=== PATIENT | male | born 1940 | race African-American/Black ===

== ENCOUNTER 2023-10-25 00:29 | Inpatient (IN) | payer MEDICARE, OTHER ==
[~2023-10-25] VITALS: Ht 182.9 cm; Wt 79.4 kg
[2023-10-25 01:01] LABS: BASOPHILS % (AUTO) 0.9 % (0.0-2.0); EOSINOPHILS # (AUTO) 0.1 K/uL (0.0-0.7); EOSINOPHILS % (AUTO) 2.3 % (0.0-6.0); HEMATOCRIT 39 % (39-51); HEMOGLOBIN 12.8 g/dL (13.5-17.5); LYMPHOCYTES # (AUTO) 1.9 K/uL (0.8-4.8); LYMPHOCYTES % (AUTO) 38.3 % (20.0-44.0); MEAN CORPUSCULAR HEMOGLOBIN 28 PG (26.0-33.0); MEAN CORPUSCULAR HGB CONC 33 g/dl (31.0-36.0); MEAN CORPUSCULAR VOLUME 83 fL (80-96); MONOCYTES # (AUTO) 0.5 K/uL (0.1-1.30); MONOCYTES % (AUTO) 9.8 % (2.0-12.0); NEUTROPHILS # (AUTO) 2.5 K/uL (1.8-8.9); NEUTROPHILS % (AUTO) 48.7 % (43.0-81.0); PLATELET COUNT (AUTO) 210 K/uL (150-450); RED BLOOD CELL COUNT(AUTO) 4.66 MIL/uL (4.5-6.0); RED CELL DISTRIBUTION WIDTH 16.4 % (11.5-15.0)
[2023-10-25 01:07] LABS: CALCIUM, SERUM 9.2 mg/dL (8.5-10.1); CARBON DIOXIDE 31 mmol/L (21-32); CHLORIDE 105 mmol/L (98-107); GLUCOSE 93 mg/dL (74-106); POTASSIUM 4.6 mmol/L (3.5-5.1); SODIUM SERUM 141 mmol/L (136-145); UREA NITROGEN, BLOOD 31 mg/dL (7-18)
[2023-10-25 01:13] LABS: ALANINE AMINOTRANSFERASE 9 U/L (12-78); ALBUMIN 3.3 g/dL (3.4-5.0); ALKALINE PHOSPHATASE 48 U/L (46-116); ASPARTATE AMINOTRANSFERASE 5 U/L (15-37); BILIRUBIN,DIRECT 0.1 mg/dL (0.0-0.2); BILIRUBIN,TOTAL 0.3 mg/dL (0.2-1.0); TOTAL PROTEIN, SERUM 7.6 g/dL (6.4-8.2)
[2023-10-25 01:18] LABS: ACETAMINOPHEN <10 ug/ml (10-30); ALCOHOL, BLOOD < 3 mg/dL (0-10); SALICYLATE 2.6 mg/dL (2.8-20.0)
[2023-10-25 03:00] VITALS: BP 107/66; TEMP 98.3; O2SAT 96
[2023-10-25] MEDS ORDERED: MAG HYDROX/AL HYDROX/SIMETH 30 ML UDC PO PRN (03:00)
[2023-10-25] MEDS ORDERED: MAGNESIUM HYDROXIDE 30 ML UDC PO PRN (03:00)
[2023-10-25] MEDS: BLOOD SUGAR DIAGNOSTIC 1 EACH STRIP IN ONE (03:28)
[2023-10-25] MEDS ORDERED: CHOL400T11 PO (05:09)
[2023-10-25] MEDS ORDERED: ALEN70TA80 PO (05:09)
[2023-10-25] MEDS ORDERED: DOCU100C36 PO (05:09)
[2023-10-25] MEDS ORDERED: VALP250C3 PO (05:09)
[2023-10-25] MEDS ORDERED: RISP2TAB85 PO (05:09)
[2023-10-25] MEDS ORDERED: METF-440 PO (05:09)
[2023-10-25] MEDS: DOCUSATE SODIUM 100 MG CAPSULE PO SCH (09:42)
[2023-10-25] MEDS: METFORMIN 500 MG TABLET PO SCH (09:42)
[2023-10-25] MEDS: CHOLECALCIFEROL 1,000 UNIT TABLET (VIT D3) PO SCH (09:42)
[2023-10-25] MEDS: VALPROIC ACID 250 MG/5 ML UDC PO SCH (13:25)
[2023-10-25] MEDS: risperiDONE 1 MG TABLET PO SCH (13:25)
[2023-10-25 16:00] VITALS: BP 119/73; TEMP 97.9; O2SAT 99
[2023-10-26 08:00] VITALS: BP 100/77; TEMP 97.9; O2SAT 98
[2023-10-26] MEDS: VITAMINS A AND D 56.7 GM TUBE TP SCH (09:05)
[2023-10-26] MEDS: LORAZEPAM 0.5 MG TABLET PO PRN (11:36)
[2023-10-26 16:00] VITALS: BP 111/68; TEMP 97.5; O2SAT 98
[2023-10-26 20:00] VITALS: BP 108/63; TEMP 97.8; O2SAT 97
[2023-10-27 08:00] VITALS: BP 111/73; TEMP 98.1; O2SAT 97
[2023-10-27] MEDS: risperiDONE 1 MG TABLET PO SCH (12:31)
[2023-10-27 16:00] VITALS: BP 131/69; TEMP 97.7; O2SAT 98
[2023-10-27 20:00] VITALS: BP 99/64; TEMP 97.8; O2SAT 98
[2023-10-28 08:00] VITALS: BP 119/63; TEMP 98; O2SAT 98
[2023-10-28 16:00] VITALS: BP 99/60; TEMP 97.6; O2SAT 98
[2023-10-29] MEDS: ALENDRONATE 70 MG TABLET PO SCH (06:04)
[2023-10-29 08:00] VITALS: BP 116/61; TEMP 97.7; O2SAT 93
[2023-10-29 16:00] VITALS: BP 113/67; TEMP 97.9; O2SAT 100
[2023-10-30 08:00] VITALS: BP 104/72; TEMP 98.6; O2SAT 97
[2023-10-30] MEDS: OXCARBAZEPINE 150 MG TABLET PO SCH (11:07)
[2023-10-30] MEDS: risperiDONE 1 MG TABLET PO SCH (13:16)
[2023-10-30 16:00] VITALS: BP 115/75; TEMP 97.9; O2SAT 96
[2023-10-30 20:25] VITALS: BP 123/80; TEMP 97.9; O2SAT 98
[2023-10-31 08:00] VITALS: BP 107/54; TEMP 97.8; O2SAT 98
[2023-10-31 16:00] VITALS: BP 116/70; TEMP 98.1; O2SAT 100
[2023-10-31] MEDS: OXCARBAZEPINE 150 MG TABLET PO SCH (17:30)
[2023-10-31 21:28] VITALS: BP 106/79; TEMP 97.8; O2SAT 98
[2023-11-01 08:00] VITALS: BP 94/65; TEMP 98.9; O2SAT 99
[2023-11-01 16:00] VITALS: BP 106/73; TEMP 97.9; O2SAT 99
[2023-11-01] MEDS: OXCARBAZEPINE 150 MG TABLET PO SCH (17:35)
[2023-11-01 20:38] VITALS: BP 120/60; TEMP 97.9; O2SAT 98
[2023-11-02] MEDS: ACETAMINOPHEN 325 MG TABLET PO PRN (02:40)
[2023-11-02 08:00] VITALS: BP 128/90; TEMP 97.7; O2SAT 98
[2023-11-02 15:45] LABS: BASOPHILS % (AUTO) 0.8 % (0.0-2.0); EOSINOPHILS # (AUTO) 0.1 K/uL (0.0-0.7); EOSINOPHILS % (AUTO) 1.6 % (0.0-6.0); HEMATOCRIT 38 % (39-51); HEMOGLOBIN 12.2 g/dL (13.5-17.5); LYMPHOCYTES # (AUTO) 2.5 K/uL (0.8-4.8); LYMPHOCYTES % (AUTO) 47.8 % (20.0-44.0); MEAN CORPUSCULAR HEMOGLOBIN 27 PG (26.0-33.0); MEAN CORPUSCULAR HGB CONC 33 g/dl (31.0-36.0); MEAN CORPUSCULAR VOLUME 84 fL (80-96); MONOCYTES # (AUTO) 0.5 K/uL (0.1-1.30); MONOCYTES % (AUTO) 9.9 % (2.0-12.0); NEUTROPHILS % (AUTO) 39.9 % (43.0-81.0); PLATELET COUNT (AUTO) 167 K/uL (150-450); RED BLOOD CELL COUNT(AUTO) 4.49 MIL/uL (4.5-6.0); RED CELL DISTRIBUTION WIDTH 16.1 % (11.5-15.0); WHITE BLOOD COUNT (AUTO) 5.1 K/uL (4.3-11.0)
[2023-11-02 16:00] VITALS: BP 117/59; TEMP 97.9; O2SAT 98
[2023-11-02 20:00] VITALS: BP 109/80; TEMP 97.7; O2SAT 98
[2023-11-03 08:00] VITALS: BP 141/86; TEMP 98.6; O2SAT 95
[2023-11-03 16:00] VITALS: BP 91/67; TEMP 98; O2SAT 100
[2023-11-03] MEDS: OXCARBAZEPINE 150 MG TABLET PO SCH (16:39)
[2023-11-03 20:00] VITALS: BP 112/75; TEMP 98.3; O2SAT 100
[2023-11-03] MEDS: TEMAZEPAM 7.5 MG CAPSULE PO PRN (22:50)
[2023-11-04 08:00] VITALS: BP 99/65; TEMP 97.7; O2SAT 100
[2023-11-04 16:00] VITALS: BP 119/69; TEMP 98.6; O2SAT 98
[2023-11-04 20:00] VITALS: BP 100/51; TEMP 98.1; O2SAT 100
[2023-11-05 08:00] VITALS: BP 107/66; TEMP 97.9; O2SAT 98
[2023-11-05 16:00] VITALS: BP 107/62; TEMP 98; O2SAT 100
[2023-11-05 20:27] VITALS: BP 107/73; TEMP 98.3; O2SAT 98
[2023-11-06 08:00] VITALS: BP 85/61; TEMP 97.8; O2SAT 100
[2023-11-06 16:06] VITALS: BP 99/64; TEMP 97.6; O2SAT 98
[2023-11-06 20:57] VITALS: BP 96/56; TEMP 97.6; O2SAT 97
[2023-11-07 08:00] VITALS: BP 126/62; TEMP 97.7; O2SAT 93
[2023-11-07 16:00] VITALS: BP 91/62; TEMP 97.7; O2SAT 98
[2023-11-07 21:05] VITALS: BP 100/56; TEMP 98.2; O2SAT 97
[2023-11-08 08:00] VITALS: BP 133/74; TEMP 97.8; O2SAT 98
[2023-11-08 16:18] VITALS: BP 99/59; TEMP 98.2; O2SAT 97
[2023-11-08 20:19] VITALS: BP 106/63; TEMP 98; O2SAT 99
[2023-11-09 08:00] VITALS: BP 107/62; TEMP 97.9; O2SAT 97
== END 2023-11-09 14:41 | DRG 885 ==
LOC: ER 00:31 → GPS 01:28
PROVIDERS: ADMIT Nurse Practitioner Psychiatric/Mental Health; ATTEND Nurse Practitioner Acute Care
DX: F25.9 Schizoaffective disorder, unspecified (principal); I11.0 Hypertensive heart disease with heart failure; E44.1 Mild protein-calorie malnutrition; F29 Unspecified psychosis not due to a substance or known physiological condition; E11.9 Type 2 diabetes mellitus without complications; Z66 Do not resuscitate; R41.9 Unspecified symptoms and signs involving cognitive functions and awareness; Z20.822 Contact with and (suspected) exposure to COVID-19; I50.9 Heart failure, unspecified; Z88.0 Allergy status to penicillin; E78.5 Hyperlipidemia, unspecified; E88.09 Other disorders of plasma-protein metabolism, not elsewhere classified; R79.89 Other specified abnormal findings of blood chemistry; D64.9 Anemia, unspecified; F17.210 Nicotine dependence, cigarettes, uncomplicated; Z91.148 Patient's other noncompliance with medication regimen for other reason; Z91.199 Patient's noncompliance with other medical treatment and regimen due to unspecified reason
CPT/HCPCS: 36415; 80048-TC; 80076-TC; 80164-TC; 85025-TC; 87081-TC; 97112-TC; 97116-TC; 97530-TC; G0480

== ENCOUNTER 2023-12-30 22:59 | Inpatient (IN) | payer MEDICARE, OTHER ==
[~2023-12-30] VITALS: Ht 175.3 cm; Wt 77.1 kg
[~2023-12-30 22:59] MED LIST: ALEN70TA80 PO; CHOL400T11 PO; DOCU100C36 PO; METF-440 PO; RISP2TAB85 PO; VALP250C3 PO
[2023-12-30] MEDS ORDERED: OLANZAPINE 10 MG VIAL IM ONE (23:22)
[2023-12-30] MEDS: OLANZAPINE 10 MG VIAL IM ONE (23:33)
[2023-12-30 23:34] LABS: BASOPHILS # (AUTO) 0.1 K/uL (0.0-0.2); BASOPHILS % (AUTO) 0.9 % (0.0-2.0); EOSINOPHILS # (AUTO) 0.6 K/uL (0.0-0.7); EOSINOPHILS % (AUTO) 6.6 % (0.0-6.0); HEMATOCRIT 39 % (39-51); HEMOGLOBIN 13.1 g/dL (13.5-17.5); LYMPHOCYTES # (AUTO) 3.6 K/uL (0.8-4.8); LYMPHOCYTES % (AUTO) 39.8 % (20.0-44.0); MEAN CORPUSCULAR HEMOGLOBIN 28 PG (26.0-33.0); MEAN CORPUSCULAR HGB CONC 33 g/dl (31.0-36.0); MEAN CORPUSCULAR VOLUME 83 fL (80-96); MONOCYTES % (AUTO) 10.7 % (2.0-12.0); NEUTROPHILS # (AUTO) 3.8 K/uL (1.8-8.9); PLATELET COUNT (AUTO) 188 K/uL (150-450); RED BLOOD CELL COUNT(AUTO) 4.75 MIL/uL (4.5-6.0); RED CELL DISTRIBUTION WIDTH 15.5 % (11.5-15.0); WHITE BLOOD COUNT (AUTO) 8.9 K/uL (4.3-11.0)
[2023-12-30 23:48] LABS: APPEARANCE,URINE CLEAR (CLEAR); BILIRUBIN,URINE NEGATIVE (NEGATIVE); BLOOD, URINE NEGATIVE Ery/uL (NEGATIVE); COLOR,URINE YELLOW (YELLOW); KETONES,URINE NEGATIVE (NEGATIVE); LEUKOCYTE ESTERASE ,URINE NEGATIVE (NEGATIVE); NITRITE, URINE NEGATIVE (NEGATIVE); PROTEIN,URINE TRACE mg/dl (NEGATIVE); UGLUCOSE NEGATIVE (NEGATIVE)
[2023-12-30 23:48] LABS: ALANINE AMINOTRANSFERASE 19 U/L (12-78); ALBUMIN 3.4 g/dL (3.4-5.0); ALCOHOL, BLOOD < 3 mg/dL (0-10); ALKALINE PHOSPHATASE 46 U/L (46-116); ASPARTATE AMINOTRANSFERASE 12 U/L (15-37); BILIRUBIN,DIRECT 0.1 mg/dL (0.0-0.2); BILIRUBIN,TOTAL 0.2 mg/dL (0.2-1.0); CALCIUM, SERUM 9.4 mg/dL (8.5-10.1); CARBON DIOXIDE 33 mmol/L (21-32); CHLORIDE 108 mmol/L (98-107); CREATININE 1.3 mg/dL (0.6-1.3); GLUCOSE 86 mg/dL (74-106); SODIUM SERUM 146 mmol/L (136-145); TOTAL PROTEIN, SERUM 7.7 g/dL (6.4-8.2); UREA NITROGEN, BLOOD 29 mg/dL (7-18)
[2023-12-30 23:50] LABS: ACETAMINOPHEN 0 ug/ml (10-30); SALICYLATE 1.7 mg/dL (2.8-20.0)
[2023-12-30 23:59] LABS: ADD URINE CULTURE NO; BACTERIA,URINE None seen /HPF (None Seen); MUCUS,URINE Few /LPF (None Seen); RBC,URINE NONE SEEN /HPF (0-2); SQUAMOUS EPITHELIAL CELL,UR None Seen /HPF (None Seen); WBC,URINE NONE SEEN /HPF (0-3)
[2023-12-31] MEDS: IV NS 0.9% 1,000 ML BAG IV ONE (00:09)
[2023-12-31 00:13] LABS: AMPHETAMINE, URINE NEGATIVE (NEGATIVE); BARBITURATE, URINE NEGATIVE (NEGATIVE); BENZODIAZEPINE, URINE NEGATIVE (NEGATIVE); CANNABINOID, URINE NEGATIVE (NEGATIVE); COCCAINE, URINE NEGATIVE (NEGATIVE); OPIATE, URINE NEGATIVE (NEGATIVE); PHENCYCLIDINE SCREEN,URINE NEGATIVE (NEGATIVE)
[2023-12-31 01:05] LABS: CALCIUM, SERUM 8.3 mg/dL (8.5-10.1); CARBON DIOXIDE 27 mmol/L (21-32); CHLORIDE 106 mmol/L (98-107); GLUCOSE 86 mg/dL (74-106); POTASSIUM 3.7 mmol/L (3.5-5.1); SODIUM SERUM 141 mmol/L (136-145); UREA NITROGEN, BLOOD 27 mg/dL (7-18)
[2023-12-31] MEDS ORDERED: DIVA250T4 PO (01:33)
[2023-12-31] MEDS ORDERED: MAGN400O21 PO (01:33)
[2023-12-31] MEDS ORDERED: DIVA500T2 PO (01:33)
[2023-12-31] MEDS ORDERED: MULT-1275 PO (01:33)
[2023-12-31] MEDS ORDERED: OXCA300T4 PO (01:33)
[2023-12-31] MEDS ORDERED: MAG HYDROX/AL HYDROX/SIMETH 30 ML UDC PO PRN ×2 (02:30→08:30)
[2023-12-31] MEDS ORDERED: MAGNESIUM HYDROXIDE 30 ML UDC PO PRN ×2 (02:30→09:00)
[2023-12-31] MEDS ORDERED: LORAZEPAM 0.5 MG TABLET PO PRN ×2 (02:30)
[2023-12-31] MEDS ORDERED: ACETAMINOPHEN 325 MG TABLET PO PRN (02:30)
[2023-12-31] MEDS ORDERED: TEMAZEPAM 7.5 MG CAPSULE PO PRN (02:30)
[2023-12-31] MEDS: BLOOD SUGAR DIAGNOSTIC 1 EACH STRIP IN ONE (03:22)
[2023-12-31 03:54] VITALS: BP 116/79; TEMP 98.1; O2SAT 96
[2023-12-31] MEDS ORDERED: ALENDRONATE 70 MG TABLET PO SCH (07:30)
[2023-12-31] MEDS ORDERED: ACET-868 PO (07:34)
[2023-12-31] MEDS ORDERED: MAG30ORA PO (07:34)
[2023-12-31 08:00] VITALS: BP 105/74; TEMP 97.7; O2SAT 100
[2023-12-31] MEDS: NICOTINE PATCH (14MG) 14 MG PATCH.TD24 TD SCH (08:49)
[2023-12-31] MEDS: CHOLECALCIFEROL (VITAMIN D 3) 400 UNIT TABLET PO SCH (08:50)
[2023-12-31] MEDS: METFORMIN 500 MG TABLET PO SCH (08:50)
[2023-12-31] MEDS: MULTIVITAMINS,THERAGRAN 1 UDTAB TABLET PO SCH (08:50)
[2023-12-31] MEDS: DOCUSATE SODIUM 100 MG CAPSULE PO SCH (08:51)
[2023-12-31 16:00] VITALS: BP 95/61; TEMP 97.5; O2SAT 100
[2023-12-31] MEDS: risperiDONE 1 MG TABLET PO SCH (17:00)
[2023-12-31] MEDS: DIVALPROEX SODIUM 125 MG CAP.SPRINK PO SCH ×2 (17:00→21:08)
[2023-12-31 20:33] VITALS: BP 102/75; TEMP 97.9; O2SAT 98
[2024-01-01 08:00] VITALS: BP 101/66; TEMP 98.4; O2SAT 98
[2024-01-01 16:00] VITALS: BP 111/59; TEMP 98.5; O2SAT 98
[2024-01-02 08:00] VITALS: BP 102/60; TEMP 98.9; O2SAT 97
[2024-01-02 16:00] VITALS: BP 115/63; TEMP 98.6; O2SAT 97
[2024-01-03 08:00] VITALS: BP 120/66; TEMP 98.7; O2SAT 97
[2024-01-03] MEDS: risperiDONE 1 MG TABLET PO SCH (13:30)
[2024-01-03] MEDS: OLANZAPINE 10 MG VIAL IM PRN (14:24)
[2024-01-03 16:00] VITALS: BP 127/68; TEMP 98.7; O2SAT 98
[2024-01-03 20:00] VITALS: BP 106/62; TEMP 98.7; O2SAT 98
[2024-01-03] MEDS: DIVALPROEX SODIUM 500 MG TABLET.DR PO SCH (20:07)
[2024-01-04] MEDS: DIVALPROEX SODIUM 500 MG TABLET.DR PO SCH (13:00)
[2024-01-04] MEDS: risperiDONE 1 MG TABLET PO SCH (13:00)
[2024-01-04 16:08] VITALS: BP 102/53; TEMP 97.9; O2SAT 98
[2024-01-04 20:00] VITALS: BP 107/68; TEMP 98; O2SAT 95
[2024-01-04] MEDS: TEMAZEPAM 7.5 MG CAPSULE PO PRN (23:27)
[2024-01-05 16:00] VITALS: BP 100/60; TEMP 97.6; O2SAT 98
[2024-01-05 20:00] VITALS: BP 97/63; TEMP 97.9; O2SAT 97
[2024-01-06 08:00] VITALS: BP 104/70; TEMP 97.7; O2SAT 97
[2024-01-06 16:00] VITALS: BP 109/60; TEMP 97.6; O2SAT 96
[2024-01-06 20:00] VITALS: BP 99/86; TEMP 97.8; O2SAT 96
[2024-01-06 22:04] LABS: APPEARANCE,URINE SLIGHTLY CLOUDY (CLEAR); BILIRUBIN,URINE NEGATIVE (NEGATIVE); BLOOD, URINE 3+ Ery/uL (NEGATIVE); COLOR,URINE YELLOW (YELLOW); KETONES,URINE TRACE mg/dL (NEGATIVE); LEUKOCYTE ESTERASE ,URINE 1+ (NEGATIVE); NITRITE, URINE POSITIVE (NEGATIVE); PROTEIN,URINE 1+ mg/dl (NEGATIVE); UGLUCOSE NEGATIVE (NEGATIVE)
[2024-01-06 22:31] LABS: RBC,URINE 21-50 /HPF (0-2)
[2024-01-06 22:33] LABS: ADD URINE CULTURE YES; BACTERIA,URINE Moderate /HPF (None Seen)
[2024-01-07] MEDS: NITROFURANTOIN/MONOHYDRATE MACROCRYSTALS 100 MG CAPSULE PO SCH (09:00)
[2024-01-07 09:08] VITALS: BP 100/69; TEMP 98.5; O2SAT 97
[2024-01-07] MEDS: OLANZAPINE 10 MG VIAL IM PRN (09:40)
[2024-01-07 16:00] VITALS: BP 97/68; TEMP 97.3; O2SAT 98
[2024-01-08 08:00] VITALS: BP 101/71; TEMP 97.8; O2SAT 98
[2024-01-08 16:09] VITALS: BP 109/64; TEMP 98.2; O2SAT 100
[2024-01-08 20:00] VITALS: BP 103/72; TEMP 98.2; O2SAT 99
[2024-01-09 15:53] VITALS: BP 100/63; TEMP 98.6; O2SAT 99
[2024-01-10 08:00] VITALS: BP 119/66; TEMP 98.6; O2SAT 97
[2024-01-10 16:00] VITALS: BP 100/61; TEMP 98; O2SAT 96
[2024-01-10 21:59] VITALS: BP 102/61; TEMP 98; O2SAT 96
[2024-01-11 08:00] VITALS: BP 100/53; TEMP 98.6; O2SAT 100
[2024-01-11 16:00] VITALS: BP 100/57; TEMP 98.6; O2SAT 100
[2024-01-12 08:00] VITALS: BP 90/50; TEMP 98.9; O2SAT 100
[2024-01-12 16:00] VITALS: BP 101/65; TEMP 97.7; O2SAT 95
[2024-01-12 20:00] VITALS: BP 120/66; TEMP 98; O2SAT 99
[2024-01-13 08:00] VITALS: BP 91/50; TEMP 97.7; O2SAT 95
[2024-01-13 16:00] VITALS: BP 125/58; TEMP 98.6; O2SAT 94
[2024-01-13 20:00] VITALS: BP 106/63; TEMP 98.2; O2SAT 98
[2024-01-14 08:00] VITALS: BP 100/55; TEMP 97.9; O2SAT 100
[2024-01-14 16:00] VITALS: BP 100/53; TEMP 98.2; O2SAT 100
[2024-01-15 08:00] VITALS: BP 109/60; TEMP 97.8; O2SAT 100
[2024-01-15 16:00] VITALS: BP 100/61; TEMP 98.6; O2SAT 96
[2024-01-15 20:57] VITALS: BP 102/62; TEMP 98.6; O2SAT 97
[2024-01-16 07:41] LABS: BASOPHILS # (AUTO) 0.1 K/uL (0.0-0.2); BASOPHILS % (AUTO) 0.8 % (0.0-2.0); EOSINOPHILS # (AUTO) 0.2 K/uL (0.0-0.7); EOSINOPHILS % (AUTO) 2.6 % (0.0-6.0); HEMATOCRIT 37 % (39-51); HEMOGLOBIN 12.2 g/dL (13.5-17.5); LYMPHOCYTES # (AUTO) 1.7 K/uL (0.8-4.8); LYMPHOCYTES % (AUTO) 20.1 % (20.0-44.0); MEAN CORPUSCULAR HEMOGLOBIN 27 PG (26.0-33.0); MEAN CORPUSCULAR HGB CONC 33 g/dl (31.0-36.0); MEAN CORPUSCULAR VOLUME 83 fL (80-96); MONOCYTES % (AUTO) 11.7 % (2.0-12.0); NEUTROPHILS # (AUTO) 5.5 K/uL (1.8-8.9); NEUTROPHILS % (AUTO) 64.8 % (43.0-81.0); PLATELET COUNT (AUTO) 252 K/uL (150-450); RED BLOOD CELL COUNT(AUTO) 4.53 MIL/uL (4.5-6.0); WHITE BLOOD COUNT (AUTO) 8.5 K/uL (4.3-11.0)
[2024-01-16 07:53] LABS: CALCIUM, SERUM 9.2 mg/dL (8.5-10.1); CARBON DIOXIDE 31 mmol/L (21-32); CHLORIDE 102 mmol/L (98-107); GLUCOSE 89 mg/dL (74-106); POTASSIUM 4.4 mmol/L (3.5-5.1); SODIUM SERUM 138 mmol/L (136-145); UREA NITROGEN, BLOOD 21 mg/dL (7-18)
[2024-01-16 08:00] VITALS: BP 104/57; TEMP 97.9; O2SAT 96
[2024-01-16 08:00] LABS: ALANINE AMINOTRANSFERASE 9 U/L (12-78); ALBUMIN 2.8 g/dL (3.4-5.0); ALKALINE PHOSPHATASE 38 U/L (46-116); ASPARTATE AMINOTRANSFERASE 6 U/L (15-37); BILIRUBIN,TOTAL 0.3 mg/dL (0.2-1.0); MAGNESIUM 1.8 mg/dL (1.8-2.4); VALPROIC ACID 60 ug/mL (50-100)
[2024-01-16 16:00] VITALS: BP 135/86; TEMP 98; O2SAT 98
[2024-01-16] MEDS: ACETAMINOPHEN 325 MG TABLET PO PRN (19:48)
[2024-01-16 20:53] VITALS: BP 108/60; TEMP 99.7; O2SAT 96
[2024-01-17 08:00] VITALS: BP 96/59; TEMP 98.7; O2SAT 97
[2024-01-17 16:00] VITALS: BP 101/58; TEMP 98.7; O2SAT 98
[2024-01-17 20:00] VITALS: BP 100/47; TEMP 98.8; O2SAT 96
[2024-01-18 08:00] VITALS: BP 107/57; TEMP 98.7; O2SAT 97
[2024-01-18 16:00] VITALS: BP 107/54; TEMP 97.9; O2SAT 98
== END 2024-01-18 17:30 | DRG 885 ==
LOC: ER 23:14 → GPS 12-31 01:31
PROVIDERS: ADMIT Nurse Practitioner Psychiatric/Mental Health; ATTEND Internal Medicine
DX: F25.9 Schizoaffective disorder, unspecified (principal); N18.9 Chronic kidney disease, unspecified; I13.0 Hypertensive heart and chronic kidney disease with heart failure and stage 1 through stage 4 chronic kidney disease, or unspecified chronic kidney disease; G93.49 Other encephalopathy; I50.9 Heart failure, unspecified; F41.9 Anxiety disorder, unspecified; E11.22 Type 2 diabetes mellitus with diabetic chronic kidney disease; R41.9 Unspecified symptoms and signs involving cognitive functions and awareness; Z88.0 Allergy status to penicillin; Z79.83 Long term (current) use of bisphosphonates; Z79.899 Other long term (current) drug therapy; Z79.84 Long term (current) use of oral hypoglycemic drugs; Z73.6 Limitation of activities due to disability; R53.1 Weakness; R27.8 Other lack of coordination; Z91.81 History of falling; F32.A Depression, unspecified; E78.5 Hyperlipidemia, unspecified; Z91.199 Patient's noncompliance with other medical treatment and regimen due to unspecified reason
CPT/HCPCS: 36415; 80048-TC; 80053-TC; 80076-TC; 80164-TC; 81001; 82962-TC; 83735-TC; 85025-TC; 87081-TC; 87086-TC; 97110-TC; 97112-TC; 97116-TC; 97530-TC; G0480; J3490

== ENCOUNTER 2024-03-17 15:35 | Inpatient (IN) | payer MEDICARE, OTHER ==
[~2024-03-17] VITALS: Ht 170.2 cm; Wt 74.8 kg
[~2024-03-17 15:35] MED LIST changes: +ACET-868 PO; +MAG30ORA PO; +MAGN400O21 PO; +MULT-1275 PO; -RISP2TAB85 PO; -VALP250C3 PO
[2024-03-17 16:53] LABS: BASOPHILS % (AUTO) 0.8 % (0.0-2.0); EOSINOPHILS % (AUTO) 0.6 % (0.0-6.0); HEMATOCRIT 32 % (39-51); HEMOGLOBIN 10.6 g/dL (13.5-17.5); LYMPHOCYTES # (AUTO) 1.4 K/uL (0.8-4.8); LYMPHOCYTES % (AUTO) 28.2 % (20.0-44.0); MEAN CORPUSCULAR HEMOGLOBIN 27 PG (26.0-33.0); MEAN CORPUSCULAR HGB CONC 33 g/dl (31.0-36.0); MEAN CORPUSCULAR VOLUME 82 fL (80-96); MONOCYTES # (AUTO) 0.8 K/uL (0.1-1.30); MONOCYTES % (AUTO) 16.4 % (2.0-12.0); NEUTROPHILS # (AUTO) 2.7 K/uL (1.8-8.9); PLATELET COUNT (AUTO) 192 K/uL (150-450); RED BLOOD CELL COUNT(AUTO) 3.88 MIL/uL (4.5-6.0); RED CELL DISTRIBUTION WIDTH 17.7 % (11.5-15.0); WHITE BLOOD COUNT (AUTO) 5.1 K/uL (4.3-11.0)
[2024-03-17 17:14] LABS: ALANINE AMINOTRANSFERASE 14 U/L (12-78); ALBUMIN 3.1 g/dL (3.4-5.0); ALCOHOL, BLOOD < 3 mg/dL (0-10); ALKALINE PHOSPHATASE 40 U/L (46-116); ASPARTATE AMINOTRANSFERASE 12 U/L (15-37); BILIRUBIN,DIRECT 0.1 mg/dL (0.0-0.2); BILIRUBIN,TOTAL 0.3 mg/dL (0.2-1.0); CALCIUM, SERUM 8.9 mg/dL (8.5-10.1); CARBON DIOXIDE 30 mmol/L (21-32); CHLORIDE 105 mmol/L (98-107); CREATININE 1.1 mg/dL (0.6-1.3); GLUCOSE 104 mg/dL (74-106); POTASSIUM 4.2 mmol/L (3.5-5.1); SODIUM SERUM 141 mmol/L (136-145); TOTAL PROTEIN, SERUM 7.6 g/dL (6.4-8.2); UREA NITROGEN, BLOOD 27 mg/dL (7-18)
[2024-03-17 17:16] LABS: ACETAMINOPHEN <10 ug/ml (10-30)
[2024-03-17 17:56] LABS: APPEARANCE,URINE SLIGHTLY CLOUDY (CLEAR); BILIRUBIN,URINE NEGATIVE (NEGATIVE); BLOOD, URINE TRACE-INTA Ery/uL (NEGATIVE); COLOR,URINE YELLOW (YELLOW); KETONES,URINE TRACE mg/dL (NEGATIVE); LEUKOCYTE ESTERASE ,URINE 1+ (NEGATIVE); NITRITE, URINE POSITIVE (NEGATIVE); PROTEIN,URINE NEGATIVE (NEGATIVE); UGLUCOSE NEGATIVE (NEGATIVE); UROBILINOGEN,URINE 0.2 EU/dL (0.2)
[2024-03-17 18:09] LABS: AMPHETAMINE, URINE NEGATIVE (NEGATIVE); BARBITURATE, URINE NEGATIVE (NEGATIVE); BENZODIAZEPINE, URINE NEGATIVE (NEGATIVE); CANNABINOID, URINE NEGATIVE (NEGATIVE); COCCAINE, URINE NEGATIVE (NEGATIVE); OPIATE, URINE NEGATIVE (NEGATIVE); PHENCYCLIDINE SCREEN,URINE NEGATIVE (NEGATIVE)
[2024-03-17 18:23] LABS: ADD URINE CULTURE YES; BACTERIA,URINE 2+ /HPF (None Seen); RBC,URINE 0-2 /HPF (0-2); SQUAMOUS EPITHELIAL CELL,UR 0-2 /HPF (None Seen)
[2024-03-17] MEDS: SULFAMETH/TRIMETH 800/160 MG 1 UDTAB TABLET PO ONE (18:30)
[2024-03-17] MEDS ORDERED: RISP1TAB7 PO (18:40)
[2024-03-17] MEDS ORDERED: DIVA-78 PO (18:40)
[2024-03-17] MEDS ORDERED: SULFAMETH/TRIMETH 800/160 MG 1 UDTAB TABLET ONE (19:40)
[2024-03-17] MEDS ORDERED: MAGNESIUM HYDROXIDE 30 ML UDC PO PRN (22:30)
[2024-03-17] MEDS ORDERED: ALENDRONATE 70 MG TABLET PO SCH (22:30)
[2024-03-17] MEDS ORDERED: MAG HYDROX/AL HYDROX/SIMETH 30 ML UDC PO PRN (22:30)
[2024-03-17] MEDS ORDERED: ACETAMINOPHEN 325 MG TABLET PO PRN (22:30)
[2024-03-18] MEDS ORDERED: MAGNESIUM HYDROXIDE 30 ML UDC PO PRN (00:30)
[2024-03-18] MEDS ORDERED: TEMAZEPAM 7.5 MG CAPSULE PO PRN ×2 (00:30)
[2024-03-18] MEDS ORDERED: LORAZEPAM 0.5 MG TABLET PO PRN ×2 (00:30)
[2024-03-18] MEDS ORDERED: MAG HYDROX/AL HYDROX/SIMETH 30 ML UDC PO PRN (00:30)
[2024-03-18] MEDS ORDERED: ACETAMINOPHEN 325 MG TABLET PO PRN (00:30)
[2024-03-18] MEDS: BLOOD SUGAR DIAGNOSTIC 1 EACH STRIP IN ONE (00:40)
[2024-03-18 01:11] VITALS: BP 123/78; TEMP 98; O2SAT 98
[2024-03-18 08:00] VITALS: BP 107/66; TEMP 98.8; O2SAT 96
[2024-03-18] MEDS: METFORMIN 500 MG TABLET PO SCH (08:49)
[2024-03-18] MEDS: DOCUSATE SODIUM 100 MG CAPSULE PO SCH (08:49)
[2024-03-18] MEDS: SULFAMETH/TRIMETH 800/160 MG 1 UDTAB TABLET PO SCH (08:50)
[2024-03-18] MEDS: CHOLECALCIFEROL (VITAMIN D 3) 400 UNIT TABLET PO SCH (08:50)
[2024-03-18] MEDS: MULTIVIT W/MINERALS 1 TAB TABLET PO SCH (08:50)
[2024-03-18] MEDS ORDERED: ZOLPIDEM TARTRATE 5 MG TABLET PO PRN (11:30)
[2024-03-18] MEDS ORDERED: DIVALPROEX SODIUM 500 MG TABLET.DR PO SCH (11:30)
[2024-03-18] MEDS: DIVALPROEX SODIUM 500 MG TABLET.DR PO SCH (12:38)
[2024-03-18 16:00] VITALS: BP 100/80; TEMP 98.6; O2SAT 95
[2024-03-18] MEDS: risperiDONE 1 MG TABLET PO SCH (17:06)
[2024-03-18 20:57] VITALS: BP 124/79; TEMP 98.1; O2SAT 97
[2024-03-19 08:00] VITALS: BP 115/70; TEMP 98; O2SAT 98
[2024-03-19 16:00] VITALS: BP 96/60; TEMP 98; O2SAT 98
[2024-03-19 20:17] VITALS: BP 110/67; TEMP 98.1; O2SAT 98
[2024-03-20 08:00] VITALS: BP 105/74; TEMP 98.6; O2SAT 98
[2024-03-20 16:00] VITALS: BP 107/59; TEMP 98.7; O2SAT 98
[2024-03-20 20:00] VITALS: BP 106/60; TEMP 98.8; O2SAT 96
[2024-03-21 08:00] VITALS: BP 98/54; TEMP 98; O2SAT 99
[2024-03-21 16:02] VITALS: BP 97/55; TEMP 98.6; O2SAT 97
[2024-03-21 20:00] VITALS: BP 100/55; TEMP 98.7; O2SAT 98
[2024-03-22 08:00] VITALS: BP 97/60; TEMP 98; O2SAT 99
[2024-03-22 16:00] VITALS: BP 106/60; TEMP 97.6; O2SAT 99
[2024-03-22 20:00] VITALS: BP 95/58; TEMP 97.9; O2SAT 98
[2024-03-22] MEDS: risperiDONE 1 MG TABLET PO SCH (21:32)
[2024-03-22] MEDS ORDERED: risperiDONE 1 MG TABLET PO SCH (22:00)
[2024-03-23 08:00] VITALS: BP 102/68; TEMP 97.9; O2SAT 95
[2024-03-23 16:00] VITALS: BP 100/61; TEMP 98.1; O2SAT 100
[2024-03-23 19:55] VITALS: BP 108/56; TEMP 98.4; O2SAT 97
[2024-03-24 08:00] VITALS: BP 99/60; TEMP 97.9; O2SAT 100
[2024-03-24 16:00] VITALS: BP 110/61; TEMP 98; O2SAT 99
[2024-03-24 20:29] VITALS: BP 102/63; TEMP 97.9; O2SAT 98
[2024-03-25 08:00] VITALS: BP 97/54; TEMP 97.8; O2SAT 100
[2024-03-25 16:00] VITALS: BP 107/79; TEMP 98; O2SAT 94
[2024-03-25 20:57] VITALS: BP 98/55; TEMP 98.1; O2SAT 99
[2024-03-26 08:00] VITALS: BP 105/63; TEMP 99.1; O2SAT 97
[2024-03-26 16:00] VITALS: BP 100/57; TEMP 98.7; O2SAT 98
[2024-03-26 20:39] VITALS: BP 104/69; TEMP 98.6; O2SAT 98
[2024-03-27 08:00] VITALS: BP 98/54; TEMP 98.6; O2SAT 100
[2024-03-27 16:00] VITALS: BP 100/59; TEMP 98.7; O2SAT 99
[2024-03-27 20:00] VITALS: BP 95/58; TEMP 97.9; O2SAT 98
[2024-03-28 08:00] VITALS: BP 95/57; TEMP 97.9; O2SAT 96
[2024-03-28 16:00] VITALS: BP 99/63; TEMP 98.1; O2SAT 97
[2024-03-29 08:00] VITALS: BP 123/65; TEMP 98.4; O2SAT 98
[2024-03-29 16:00] VITALS: BP 112/55; TEMP 98.2; O2SAT 100
[2024-03-29 20:00] VITALS: BP 90/51; TEMP 98.3; O2SAT 100
[2024-03-30 08:00] VITALS: BP 94/57; TEMP 97.8; O2SAT 100
[2024-03-30 16:00] VITALS: BP 97/59; TEMP 98.6; O2SAT 100
[2024-03-30 20:00] VITALS: BP 103/41; TEMP 98.3; O2SAT 100
[2024-03-31 08:00] VITALS: BP 90/57; TEMP 97.7; O2SAT 100
[2024-03-31 16:00] VITALS: BP 95/60; TEMP 98; O2SAT 96
[2024-03-31 20:35] VITALS: BP 96/56; TEMP 98.1; O2SAT 96
[2024-04-01 08:00] VITALS: BP 86/58; TEMP 97.8; O2SAT 99
[2024-04-01 16:00] VITALS: BP 105/56; TEMP 97.9; O2SAT 97
[2024-04-01 20:43] VITALS: BP 96/58; TEMP 97.9; O2SAT 96
[2024-04-02 08:00] VITALS: BP 97/60; TEMP 97.9; O2SAT 97
== END 2024-04-02 14:15 | DRG 885 ==
LOC: ER 17:09 → GPS 23:32
PROVIDERS: ADMIT Psychiatry & Neurology Psychosomatic Medicine; ATTEND Nurse Practitioner Family
DX: F25.0 Schizoaffective disorder, bipolar type (principal); N18.9 Chronic kidney disease, unspecified; N39.0 Urinary tract infection, site not specified; E44.1 Mild protein-calorie malnutrition; G93.40 Encephalopathy, unspecified; B96.20 Unspecified Escherichia coli [E. coli] as the cause of diseases classified elsewhere; F03.90 Unspecified dementia, unspecified severity, without behavioral disturbance, psychotic disturbance, mood disturbance, and anxiety; I12.9 Hypertensive chronic kidney disease with stage 1 through stage 4 chronic kidney disease, or unspecified chronic kidney disease; M81.0 Age-related osteoporosis without current pathological fracture; D63.8 Anemia in other chronic diseases classified elsewhere; E88.09 Other disorders of plasma-protein metabolism, not elsewhere classified; E11.22 Type 2 diabetes mellitus with diabetic chronic kidney disease; Z66 Do not resuscitate; R79.89 Other specified abnormal findings of blood chemistry; Z79.899 Other long term (current) drug therapy; E55.9 Vitamin D deficiency, unspecified; Z79.84 Long term (current) use of oral hypoglycemic drugs; Z88.0 Allergy status to penicillin; R41.9 Unspecified symptoms and signs involving cognitive functions and awareness
CPT/HCPCS: 36415; 80048-TC; 80076-TC; 80164-TC; 81001; 85025-TC; 87086-TC; 97116-TC; 97530-TC; 98960; G0480